=== PATIENT | male | born 2000 | race Caucasian/White ===

== ENCOUNTER → 2020-12-22 | Outpatient (CLI) | payer BC ==
--- NOTE | 2020-12-22 11:36 | KCIC ---
EXAMINATION: MRI RIGHT ANKLE WITHOUT IV CONTRAST CLINICAL HISTORY: Right ankle injury and fx 2 weeks ago. Pain and swelling, lateral injury. TECHNIQUE: Multiplanar multisequential images obtained through the ankle without intravenous contrast . COMPARISON: Right ankle radiographs 12/02/2020 FINDINGS: Prominent motion artifact on multiple sequences limits evaluation, however, of the patient was unable to tolerate repeat scans due to pain. Anterior Talofibular Ligament: Complete tear, likely remote given minimal surrounding edema. Posterior Talofibular Ligament: Within normal limits. Anterior-Inferior Tibiofibular Ligament: Thin and attenuated, suggestive of remote injury. Posterior Tibiofibular Ligament: Thin and attenuated, suggestive of remote injury Deltoid Ligament Complex: Findings highly concerning for for small talar avulsion fracture involving the distal deep fibers with otherwise predominantly low grade sprain, suboptimally assessed due to pa tient motion. Posterior Tibial Tendon: Mild fluid surrounding the tendon distal to the medial malleolus, compatible with mild tenosynovitis. Flexor Digitorum Longus Tendon: Within normal limits. Flexor Hallucis Longus Tendon: Mild fluid surrounding the tendon at the level of the posterior tibiot alar joint, nonspecific and could be related to tenosynovitis or communication with the tibiotalar roxann int. Peroneal Tendons: Within normal limits. Extensor Tendons: Within normal limits. Achilles Tendon: Within normal limits. Bones/Marrow: Marrow edema in the medial malleolus, medial talus subjacent to the deltoid ligament in sertion and suspected avulsion fracture, and in the sustentaculum nicole and anterior medial talus rela ginny to reactive edema and/or bone contusions. Small well-corticated ossicle distal to the tip of the lateral malleolus, possibly related to remote trauma. No acute fibular fracture. Talar Dome: Within normal limits. Plantar Fascia: Within normal limits. Tarsal Tunnel/Sinus Tarsi: Within normal limits. Joint Fluid: Small joint effusions in the talonavicular and fourth TMT joints, nonspecific. IMPRESSION: Findings highly concerning for partial avulsion of the deltoid ligament complex as described. Findings suggestive of remote lateral ankle injury as described. No acute lateral malleolar fracture. Marrow reactive edema/contusions in the medial hindfoot. Electronically signed by: Claude Schneider DO (12/22/2020 11:33 AM) [id number]
== END ==
LOC: KCIC MRI 09:26
PROVIDERS: ATTEND Orthopaedic Surgery
DX: S82.831A Other fracture of upper and lower end of right fibula, initial encounter for closed fracture (principal); S93.491A Sprain of other ligament of right ankle, initial encounter; S90.31XA Contusion of right foot, initial encounter; M25.474 Effusion, right foot; X58.XXXA Exposure to other specified factors, initial encounter; Y93.89 Activity, other specified; Y92.89 Other specified places as the place of occurrence of the external cause; Y99.8 Other external cause status
CPT/HCPCS: 73721